=== PATIENT | male | born 1985 | race Two or more races ===

== ENCOUNTER 2016-10-12 01:35 | Emergency (ER) | payer OTHER ==
[~2016-10-12 01:35] MED LIST: FLEXERIL10 MG; MELOXICAM15 MG PO; VICODIN 5/500 T1 TAB PO
== END 2016-10-12 01:36 | disposition home or self-care (01) ==
LOC: CED 01:35
DX: B34.9 Viral infection, unspecified (principal)
CPT/HCPCS: 99282